=== PATIENT | female | born 1990 | race African-American/Black ===

== ENCOUNTER 2017-10-03 21:38 | Emergency (ER) | payer OTHER, SELFPAY | END 2017-10-03 22:34 | disposition home or self-care (01) | LOC: SCSER 21:38 | DX: R51 Headache (principal); R11.2 Nausea with vomiting, unspecified | CPT/HCPCS: 99283 ==

== ENCOUNTER 2018-12-11 23:21 | Emergency (ER) | payer OTHER ==
[2018-12-12] MEDS ORDERED: Bupivacaine 0.5% 10 ML VIAL ONE (00:27)
[2018-12-12] MEDS ORDERED: Ketorolac Tromethamine 60 MG/2 ML VIAL ONE (00:51)
== END 2018-12-12 01:42 | disposition home or self-care (01) ==
LOC: SCSER 23:21
DX: K02.9 Dental caries, unspecified (principal); K03.81 Cracked tooth
CPT/HCPCS: 64400; 90471; 96372; J1885; J3490